=== PATIENT | female | born 1955 | race Caucasian/White ===

== ENCOUNTER → 2022-05-20 09:02 | Outpatient (CLI) | payer MEDICARE, OTHER, SELFPAY ==
[2022-05-20 09:42] LABS: COVID19 -Nasal RAPID Negative (Negative)
== END ==
PROVIDERS: PCP Student in an Organized Health Care Education/Training Program; Visit Provider Surgery
DX: Z20.822 Contact with and (suspected) exposure to COVID-19 (principal); Z01.812 Encounter for preprocedural laboratory examination
CPT/HCPCS: 87635; C9803

== ENCOUNTER 2022-05-21 12:44 | Day surgery (SDC) | payer MEDICARE, OTHER, SELFPAY ==
[2022-05-21 13:07] VITALS: BMI 24.2
--- NOTE | 2022-05-21 13:12 | PM.HP.1 ---
History of Present Illness History of Present Illness Date Patient Seen: 05/21/22 Time Patient Seen: 13:13 Chief complaint: SCREENING COLONOSCOPY W/POSS BX Narrative: The patient presents for colorectal screening. Previous colonoscopy 5 years ago normal although she has a personal history of colonic polyps. On further history denies any recent gastrointestinal symptoms. No nausea, vomiting, abdominal pain, loss of appetite, unexplained weight loss, change in bowel habits, diarrhea, constipation, melena, hematochezia, or bright red blood per rectum. Patient History Medical History Asthma Melanoma Tachycardia Family & Social History Social History: household members spouse Tobacco & Substance use: Smoking Status Never smoker alcohol intake never Substance Use Type does not use Meds Home Medications and Allergies Home Medications Medication Instructions Recorded Confirmed Type sodium,potassium,mag sulfates 17.5 See Rx Instructions PO .COMPLEX 05/09/22 05/21/22 Rx gram-3.13 gram-1.6 gram oral soln #354 mL (Suprep Bowel Prep Kit) estradiol 1 mg tablet 1 mg PO Q OTHER DAY 05/21/22 05/21/22 History metoprolol succinate 25 mg capsule 25 mg PO DAILY 05/21/22 05/21/22 History sprinkle, ext. release 24 hr Allergies Allergy/AdvReac Type Severity Reaction Status Date / Time codeine Allergy Mild throat Verified 05/21/22 13:01 swelling, trouble breathing adhesive AdvReac Severe Rash Verified 05/21/22 13:01 Exam Narrative Exam Narrative: General adult woman alert oriented no acute distress Assessment & Plan Assessment and plan (1) Personal history of colonic polyps: Status: Acute Assessment & Plan narrative: The patient requires colorectal screening and colonoscopy is recommended. Technical details were discussed. Risks, benefits, alternatives explained. Risks including but not limited to myocardial infarction, aspiration, bleeding, pain, missed lesion, incomplete examination, need for further radiographic studies, colonic perforation, and need for major abdominal surgery were discussed. All questions were answered to their satisfaction, and they are in agreement with this plan. Time Spent With Patient Critical Care time: I spent a total of [] minutes of critical care time on this patient's care today; this time is exclusive of procedural time.
[2022-05-21] MEDS: LACTATED RINGERS 1,000 ML 200 ML IV (13:15)
[2022-05-21 13:16] VITALS: BP 165/73; PULSE 53; RESP 16; TEMP 36.4; O2SAT 100
--- NOTE | 2022-05-21 13:55 | PM.OP.COLON ---
Operative Date/Time/Diagnoses Date of procedure: 05/21/22 Time of procedure: 13:55 Pre-op diagnosis: Personal history of colonic polyps Post-op diagnosis: same Procedure & Clinicians Study performed: Colonoscopy Same procedure as scheduled: Yes Indications: Personal history of colonic polyps Surgeon: Deni Rodgers Procedure Notes Procedure in detail: Medications: Conscious sedation using 7mg IV midazolam and 200mcg IV of fentanyl The history and physical was performed/updated and the patient is ASA class is 2. The procedure was discussed in detail with the patient. Potential risks complications including infection, bleeding, missed diagnosis, perforation, need for surgery, and were explained. Their questions were answered and informed consent was obtained. Patient was brought to the procedure room and placed standard monitoring equipment. The patient's vital signs were monitored continuously throughout the entire procedure. Prior to starting time-out was performed. The patient was placed in the left lateral recumbent position. Procedural sedation was administered. Examination began with a thorough inspection of the perianal area there was no evidence of fissures, fistulae, external hemorrhoids or cutaneous malignancy. The colonoscopy scope was then placed into the anal canal and was advanced to the cecum, which was identified by the ileocecal valve, the appendiceal orifice and the confluence of the taenia. The scope was then slowly withdrawn examining colon thoroughly in all directions, irrigating it of any residual stool. FINDINGS 1. No masses or polyps 2. Descending colon-diverticulosis moderate The patient tolerated the procedure well. They will be discharged once criteria are met. The prep was of good/excellent quality. The withdrawl time was 7 minutes. The sedation time was 26 minutes. Specimen(s): none sent Impression: Normal colonoscopy Post-procedure Recommendations: Colonoscopy in 10 years and High fiber diet Disposition: same day surgery
[2022-05-21] MEDS: MIDAZOLAM 5 MG/5 ML VIAL IV (13:58)
[2022-05-21] MEDS: fentaNYL 100 MCG/2 ML INJ IV (13:58)
[2022-05-21 14:01] VITALS: BP 104/55; PULSE 47; RESP 12; TEMP 36.1; O2SAT 98
[2022-05-21 14:06] VITALS: BP 98/55; PULSE 44; RESP 15; O2SAT 97
[2022-05-21 14:10] VITALS: BP 98/58; PULSE 44; RESP 16; TEMP 36.1; O2SAT 99
[2022-05-21 14:25] VITALS: BP 110/59; PULSE 49; RESP 14; TEMP 36.1; O2SAT 98
[2022-05-21 14:32] VITALS: BP 118/59; PULSE 44; RESP 14; TEMP 36.1; O2SAT 98
== END 2022-05-21 14:49 | disposition home or self-care (01) ==
PROVIDERS: PCP Student in an Organized Health Care Education/Training Program; Referring Provider Surgery; Visit Provider Surgery
PROC: 0DJD8ZZ Inspection of Lower Intestinal Tract, Via Natural or Artificial Opening Endoscopic (ICD-10-PCS; CPT 45378; principal; 2022-05-21 13:45)
DX: Z12.11 Encounter for screening for malignant neoplasm of colon (principal); Z86.010 Personal history of colon polyps; K57.30 Diverticulosis of large intestine without perforation or abscess without bleeding
CPT/HCPCS: G0105; 99152; 99153; J2250; J3010

== ENCOUNTER → 2023-01-01 14:49 | Outpatient (CLI) | payer MEDICARE, OTHER, SELFPAY ==
--- NOTE | 2023-01-01 | DI.MG.S_ITS ---
BILATERAL DIGITAL SCREENING MAMMOGRAM 3D/2D WITH CAD: 01/01/2023 CLINICAL: Routine screening. Family history of breast cancer. Comparison is made to exams dated: 10/22/2020 mammogram, 11/17/2017 mammogram, and 11/10/2015 mammogram - [facility]. Both breasts are heterogeneously dense, which may obscure small masses (category c / 51-75% glandular tissue). Current study was also evaluated with a Computer Aided Detection (CAD) system. No significant masses, calcifications, or other findings are seen in either breast. There has been no significant interval change. IMPRESSION: NEGATIVE There is no mammographic evidence of malignancy. A 1 year screening mammogram is recommended. Based on the Tyrer Cuzick model (a risk assessment model) the patient's lifetime risk is 6.0% and her 10 year risk is 3.1%. According to the ACR, ACS, and NCCN guidelines, an annual breast MRI exam along with mammogram is recommended if the patient's lifetime risk is 20% or greater. This exam was interpreted at Station ID: [id number]. NOTE: For mammograms, a report in lay terms will be sent to the patient. Approximately 15% of breast malignancies will not be visualized mammographically. In the management of a palpable breast mass, a negative mammogram must not discourage biopsy of a clinically suspicious lesion. Electronically Signed By: Dax wong/quinton:01/02/2023 14:09:51 letter sent: Normal Exam ACR BI-RADS Category 1: Negative 3341F
--- NOTE | 2023-01-01 | DI.RAD.S_ITS ---
Bone Density Report Name: KINJAL GALVAN Age: 67 Sex: Female Ethnicity: White Date of : 1955 Indication: postmenopausal; screening for osteoporosis; Referring Provider: RON OTERO Study: Bone densitometry was performed. Exam Date: January 01, 2023 Accession number: [id number] Bone Density: Region BMD T-score Z-score Classification AP Spine(L1-L4) 0.931 -1.1 0.9 Osteopenia Femoral Neck (Left) 0.668 -1.6 0.0 Osteopenia Total Hip (Left) 0.795 -1.2 0.2 Osteopenia Femoral Neck (Right) 0.657 -1.7 -0.1 Osteopenia Total Hip (Right) 0.795 -1.2 0.2 Osteopenia Total Hip Mean 0.795 -1.2 0.2 Osteopenia World Health Organization criteria for BMD impression classify patients as: Normal (T-score at or above -1.0), Osteopenia (T-score between -1.0 and -2.5), or Osteoporosis (T-score at or below -2.5). 10-year Fracture Risk(1): Major Osteoporotic Fracture 10% Hip Fracture 1.5% Reported Risk Factors: [place] (), Neck BMD=0.657, BMI=25.6 (1) FRAX(R) Version 3.08. Fracture probability calculated for an untreated patient. Fracture probability may be lower if the patient has received treatment. Impression: The patient has low bone mass, based on the Right Femoral Neck T-score. The patient has an estimated ten-year risk of hip fracture of 1.5% and an estimated ten-year risk of major fracture of 10%, based on the WHO FRAX algorithm. Discussion: BONE DENSITY IS LOW AT ONE OR MORE SKELETAL SITES. This patient's lowest T-score is low at one or more skeletal sites. It meets the World Health Organization's (WHO) criteria for low bone mass (T-score between -1.0 and -2.5). The patient's 10-year risk of fracture as calculated by FRAX is less than the threshold where pharmacological therapy is recommended by the National Osteoporosis Foundation (NOF). However, all treatment decisions require clinical judgment and consideration of individual patient factors, including patient preferences, comorbidities, previous drug use, risk factors not captured in the FRAX model (e.g., frailty, falls, vitamin D deficiency, increased bone turnover, interval significant decline in bone density) and possible under or overestimation of fracture risk by FRAX. The patient should follow a healthful lifestyle (good nutrition with adequate calcium and vitamin D, and appropriate weight-bearing exercise). Follow-Up: Consider repeating this study in 2 to 3 years to reassess this patient's status, or sooner if there is some new clinical indication. Reported by: HERMILA MINA M.D. on 01/01/2023 3:13:00 PM.
== END ==
PROVIDERS: PCP Student in an Organized Health Care Education/Training Program; Referring Provider Student in an Organized Health Care Education/Training Program; Visit Provider Student in an Organized Health Care Education/Training Program
DX: M85.851 Other specified disorders of bone density and structure, right thigh (principal); Z12.31 Encounter for screening mammogram for malignant neoplasm of breast; Z80.3 Family history of malignant neoplasm of breast; Z13.820 Encounter for screening for osteoporosis; Z78.0 Asymptomatic menopausal state
CPT/HCPCS: 77063; 77067; 77080

== ENCOUNTER → 2024-01-05 13:52 | Outpatient (CLI) | payer MEDICARE, OTHER, SELFPAY ==
--- NOTE | 2024-01-05 13:55 | DI.US.S_ITS ---
PROCEDURE: US CAROTID DOPPLER BI INDICATIONS: HYPERLIPIDEMIA TECHNIQUE: Color and pulse Doppler interrogation was performed of both carotid systems, with image documentation and velocity measurements. COMPARISON: None. FINDINGS: Stenosis calculations are based on SRU (Society of Radiologists in Ultrasound) criteria. Right side: Brachial blood pressure: Not obtained Common carotid artery peak systolic velocity: 74 cm/sec. Internal carotid artery peak systolic velocity: 120 cm/sec. Internal carotid artery end diastolic velocity: 49 cm/sec. External carotid artery peak systolic velocity: 56 cm/sec. ICA/CCA peak systolic ratio: 1.6. Lorenzana scale imaging description: Mild atheromatous plaque. Percent internal carotid artery stenosis: Less than 50% stenosis. Vertebral artery: Flow direction is antegrade. Left side: Brachial blood pressure: Not obtained Common carotid artery peak systolic velocity: 79 cm/sec. Internal carotid artery peak systolic velocity: 82 cm/sec. Internal carotid artery end diastolic velocity: 39 cm/sec. External carotid artery peak systolic velocity: 76 cm/sec. ICA/CCA peak systolic ratio: 1.1 . Lorenzana scale imaging description: Mild atheromatous plaque Percent internal carotid artery stenosis: Less than 50% stenosis. Vertebral artery: Flow direction is antegrade. IMPRESSION: Less than 50% stenosis of the bilateral internal carotid arteries. Dictated by: Serena Torres M.D. on 01/05/2024 at 16:54 Approved by: Serena Torres M.D. on 01/05/2024 at 16:58
--- NOTE | 2024-01-05 13:55 | DI.MG.S_ITS ---
BILATERAL DIGITAL SCREENING MAMMOGRAM 3D/2D WITH CAD: 01/05/2024 CLINICAL: Routine screening. Family history of breast cancer. Comparison is made to exams dated: 01/01/2023 mammogram - [facility], 10/22/2020 mammogram, and 11/17/2017 mammogram - [facility]. Both breasts are heterogeneously dense, which may obscure small masses (category c / 51-75% glandular tissue). Current study was also evaluated with a Computer Aided Detection (CAD) system. There is an asymmetry in the right breast posterior depth lateral region seen on the craniocaudal view only. No other significant masses, calcifications, or other findings are seen in either breast. IMPRESSION: INCOMPLETE: NEEDS ADDITIONAL IMAGING EVALUATION The asymmetry in the right breast is indeterminate. Additional views with possible ultrasound are recommended. Based on the Tyrer Cuzick model (a risk assessment model) the patient's lifetime risk is 5.7% and her 10 year risk is 3.1%. According to the ACR, ACS, and NCCN guidelines, an annual breast MRI exam along with mammogram is recommended if the patient's lifetime risk is 20% or greater. This exam was interpreted at Station ID: [id number]. NOTE: For mammograms, a report in lay terms will be sent to the patient. Approximately 15% of breast malignancies will not be visualized mammographically. In the management of a palpable breast mass, a negative mammogram must not discourage biopsy of a clinically suspicious lesion. Electronically Signed By: Krzysztof Taveras M.D. lc/:01/07/2024 13:34:06 letter sent: Additional Imaging Needed ACR BI-RADS Category 0: Incomplete [id number]
== END ==
PROVIDERS: PCP Student in an Organized Health Care Education/Training Program; Referring Provider Student in an Organized Health Care Education/Training Program; Visit Provider Student in an Organized Health Care Education/Training Program
DX: Z12.31 Encounter for screening mammogram for malignant neoplasm of breast (principal); Z80.3 Family history of malignant neoplasm of breast; R92.333 Mammographic heterogeneous density, bilateral breasts; I65.23 Occlusion and stenosis of bilateral carotid arteries; E78.5 Hyperlipidemia, unspecified
CPT/HCPCS: 77063; 77067; 93880

== ENCOUNTER → 2024-01-22 10:08 | Outpatient (CLI) | payer MEDICARE, OTHER, SELFPAY ==
--- NOTE | 2024-01-22 10:09 | DI.MG.S_ITS ---
UNILATERAL RIGHT DIGITAL DIAGNOSTIC MAMMOGRAM 3D/2D WITH ADDITIONAL VIEWS: 01/22/2024 CLINICAL: Additional evaluation requested from prior study. Comparison is made to exams dated: 01/05/2024 mammogram, 01/01/2023 mammogram - [facility], and 10/22/2020 mammogram - Loc[facility] within [facility]. The right breast is heterogeneously dense, which may obscure small masses (category c / 51-75% glandular tissue). There is an asymmetry in the right breast posterior depth lateral region seen on the craniocaudal view only. This is not seen in additional views, likely superimposition artifact. No other significant masses or calcifications are seen in the breast. IMPRESSION: NEGATIVE There is no mammographic evidence of malignancy. Return to annual mammogram screening schedule is recommended. Based on the Tyrer Cuzick model (a risk assessment model) the patient's lifetime risk is 5.4% and her 10 year risk is 3.2%. According to the ACR, ACS, and NCCN guidelines, an annual breast MRI exam along with mammogram is recommended if the patient's lifetime risk is 20% or greater. This exam was interpreted at Station ID: [id number]. NOTE: For mammograms, a report in lay terms will be sent to the patient. Approximately 15% of breast malignancies will not be visualized mammographically. In the management of a palpable breast mass, a negative mammogram must not discourage biopsy of a clinically suspicious lesion. Electronically Signed By: Krzysztof Taveras M.D. lc/:01/22/2024 10:48:19 letter sent: Normal Exam ACR BI-RADS Category 1: Negative 3341F
== END ==
LOC: MAMMO 10:09
PROVIDERS: PCP Student in an Organized Health Care Education/Training Program; Referring Provider Student in an Organized Health Care Education/Training Program; Visit Provider Student in an Organized Health Care Education/Training Program
DX: R92.8 Other abnormal and inconclusive findings on diagnostic imaging of breast (principal); R92.331 Mammographic heterogeneous density, right breast
CPT/HCPCS: 77065; G0279

== ENCOUNTER → 2024-05-03 07:53 | Outpatient (CLI) | payer MEDICARE, OTHER, SELFPAY ==
--- NOTE | 2024-05-03 07:54 | DI.ECHO.S_ITS ---
[facility] : : [address] : : [place] : : [id number] : : Phone: [phone] Echocardiogram Report + + :Name: KINJAL GALVAN Study Date: 05/03/2024 Height: 65 in : :[facility] ReadingLocation: Weight: 151 lb : : Gender: Female BSA: 1.8 m2 : :: 1955 Age: 69 yrs BP: 181/87 mmHg: :Reason For Study: ABNORMAL EKG : :Ordering Physician: BENSON HERRING Performed By: Luis Felipe Meade : :Referring: BENSON HERRING : + + Interpretation Summary 1. The left ventricular contractility is normal. Estimated ejection fraction is greater than 60% with no segmental wall motion abnormalities. No LVH. Unable to comment on diastolic function. 2. The right ventricular contractility is normal. 3. Moderate biatrial enlargement. 4. Mild to moderate aortic insufficiency. 5. Trace to mild mitral regurgitation. 6. No obvious intracardiac shunts. 7. No obvious intracardiac masses nor thrombi. 8. No hemodynamically significant pericardial effusion. 9. Low right-sided filling pressures. Conclusion: Normal biventricular systolic function with mild to moderate valvular heart disease. Procedure: A two-dimensional transthoracic echocardiogram with color flow and Doppler was performed. The study quality was technically adequate. There is no prior echocardiogram noted for this patient. BIGEMINY. Left Ventricle: The left ventricle is normal in size. There is normal left ventricular wall thickness. There is no ventricular septal defect visualized. The ejection fraction is estimated to be 60-65%. There are no focal wall motion abnormalities. Right Ventricle: The right ventricle is normal in size and function. The right ventricular systolic function is normal. Atria: The left atrium is moderately dilated. The right atrium is moderately dilated. There is no Doppler evidence for an atrial septal defect. Mitral Valve: The mitral valve is normal in structure and function. There is trace mitral regurgitation. Aortic Valve: The aortic valve is trileaflet. The aortic valve opens well. There is mild aortic regurgitation. Tricuspid Valve: The tricuspid valve is normal in structure and function. There is trace tricuspid regurgitation. The right ventricular systolic pressure is estimated to be at least 26 mmHg based on an estimated right atrial pressure of 3 mm Hg. Pulmonic Valve: The pulmonic valve is normal in structure and function. There is trace pulmonic regurgitation. Great Vessels: The aortic root is normal size. The dimensions of the ascending aorta are normal. The pulmonary artery is normal size. The IVC is of normal diameter and collapses greater than 50% with a sniff. This suggests a low right atrial pressure of 3 mm Hg. Pericardium/ Pleura There is no pericardial effusion. There is no pleural effusion. MMode/2D Measurements & Calculations LVIDd: 4.3 cm LVOT diam: 2.4 cm LVIDs: 2.9 cm Ao root diam: 3.6 cm FS: 33.1 % asc Aorta Diam: 3.5 cm EPSS: 0.46 cm Ao Arch Diam (Prox Trans): 2.3 cm IVSd: 0.97 cm LVPWd: 0.91 cm LV alvarez. diameter/BSA (cm/m^2): 2.5 LV sys. diameter/BSA (cm/m^2): 1.7 LA A2 area: 21.0 cm2 RA long axis: 5.9 cm LA A4 area: 22.8 cm2 RA area: 19.0 cm2 LA length (vol): 5.9 cm RA vol: 51.6 ml LA vol: 69.0 ml RA : 29.4 ml/m2 LA vol index: 39.3 ml/m2 IVC diam: 2.0 cm RVD1 (basal): 3.7 cm RVD2 (mid): 2.7 cm TAPSE: 2.8 cm Doppler Measurements & Calculations Ao V2 max: 111.2 cm/sec LVOT Max Tushar: 82.7 cm/sec Ao V2 mean: 62.8 cm/sec LV V1 max P.7 mmHg Ao max P.9 mmHg LV V1 VTI: 17.7 cm Ao mean P.9 mmHg JANESSA(I,D): 3.4 cm2 Ao V2 VTI: 23.9 cm JANESSA(V,D): 3.4 cm2 sev ratio: 0.74 JANESSA indexed to BSA (cm^2/m^2): 1.9 AI P1/2t: 878.3 msec AI dec slope: 166.7 cm/sec2 MV E max tushar: 70.7 cm/sec TR max tushar: 239.5 cm/sec MV A max tushar: 35.6 cm/sec TR max P.9 mmHg MV E/A: 2.0 PA V2 max: 81.7 cm/sec Med Peak E' Tushar: 4.6 cm/sec PA V2 mean: 53.3 cm/sec E/E' med: 15.2 PA mean P.3 mmHg Lat Peak E' Tushar: 5.7 cm/sec PA pr(Accel): 12.2 mmHg E/E' lat: 12.5 E/e' average: 13.9 MV dec time: 0.18 sec SV(LVOT): 81.0 ml Reading Physician:
== END ==
PROVIDERS: PCP Student in an Organized Health Care Education/Training Program; Referring Provider Internal Medicine; Visit Provider Internal Medicine
DX: I35.1 Nonrheumatic aortic (valve) insufficiency (principal); R94.31 Abnormal electrocardiogram [ECG] [EKG]
CPT/HCPCS: 93306

== ENCOUNTER → 2025-05-17 10:24 | Outpatient (CLI) | payer MEDICARE, OTHER, SELFPAY ==
--- NOTE | 2025-05-17 10:27 | DI.RAD.S_ITS ---
PROCEDURE: XR DEXA AXIAL SKELETON INDICATIONS: Osteoporosis Screening COMPARISON: [facility], CR, XR DEXA AXIAL SKELETON, 01/01/2023, 15:02. FINDINGS: Lumbar Spine: Bone mineral density 0.93 g/cm2, T score -1.1, similar. Left Femoral Neck: Bone mineral density 0.64 g/cm2, T score -1.9, previous T- score was -1.6. Left Hip: Bone mineral density 0.76 g/cm2, T score -1.5, previous T-score was -1.2. Fracture Risk Calculation (when applicable): 10-year fracture risk of a major osteoporotic fracture 11 percent and of a hip fracture 2 percent. (T score greater or equal to -1.0 to: NORMAL) (T score from -1.1 to -2.4: OSTEOPENIA) (T score less than or equal to -2.5: OSTEOPOROSIS) IMPRESSION: Osteopenia. T-scores have slightly declined in the left femoral neck and hip compared to prior Follow-up guidelines as follows: Osteoporosis: Consider a repeat DEXA and Vertebral Fracture Assessment (VFA) exam in 2 years or sooner if medically necessary, to reassess this patient's status. Osteopenia: Consider a repeat DEXA in 2-3 years to reassess this patient's status, or if there is a new clinical indication. Normal: Consider a repeat DEXA in 5 years or sooner, or if there is a new clinical indication. All treatment decisions require clinical judgment and consideration of individual patient factors, including patient preferences, comorbidities, previous drug use, risk factors not captured in the FRAX model (e.g., frailty, falls, vitamin D deficiency, increased bone turnover, interval significant decline in bone density ) and possible under- or over-estimation of fracture risk by FRAX. In addition, the NOF Guide recommends that FDA-approved medical therapies be considered in postmenopausal women and men age >= 50 years with a: * Hip or vertebral (clinical or morphometric) fracture * T-score of <=-2.5 at the spine or hip * Ten-year fracture probability by FRAX of >= 3% for hip fracture or >=20% for major osteoporotic fracture. Dictated by: Krzysztof Taveras M.D. on 05/17/2025 at 16:18 Approved by: Krzysztof Taveras M.D. on 05/17/2025 at 16:19
== END ==
PROVIDERS: PCP Student in an Organized Health Care Education/Training Program; Referring Provider Student in an Organized Health Care Education/Training Program; Visit Provider Student in an Organized Health Care Education/Training Program
DX: M85.89 Other specified disorders of bone density and structure, multiple sites (principal); N95.9 Unspecified menopausal and perimenopausal disorder
CPT/HCPCS: 77080